=== PATIENT | female | born 1940 | race Caucasian/White ===

== ENCOUNTER 2018-02-06 14:52 | Emergency (ER) | payer MEDICARE, OTHER ==
[2018-02-06 15:07] VITALS: RESP 18; TEMP 98
[2018-02-06] MEDS ORDERED: BACITRACIN 500 U/GM OIN TOP ONE ×2 (15:15→15:18)
[2018-02-06 15:40] VITALS: BP 119/83; PULSE 88; O2SAT 95
== END 2018-02-06 15:38 | disposition home or self-care (01) | DRG 156 ==
LOC: ED 14:52
DX: S01.21XA Laceration without foreign body of nose, initial encounter (principal); W19.XXXA Unspecified fall, initial encounter
CPT/HCPCS: 93005; 99282; 99283; A9270-GY